=== PATIENT | male | born 1970 | race African-American/Black ===

== ENCOUNTER 2019-09-26 09:59 | Emergency (ER) | payer BC ==
[2019-09-26 10:22] VITALS: BP 153/88; PULSE 58; TEMP 98.2; BMI 29.4
[2019-09-26] MEDS ORDERED: METHOCARBAMOL 500 MG TABLET PO ONE (11:49)
[2019-09-26] MEDS ORDERED: KETOROLAC TROMETHAMINE 60 MG/2 ML VIAL IM ONE (11:49)
[2019-09-26] MEDS ORDERED: KETOROLAC TROMETHAMINE 60 MG/2 ML VIAL ONE (11:53)
[2019-09-26] MEDS ORDERED: METHOCARBAMOL 500 MG TABLET ONE (11:53)
--- NOTE | 2019-09-26 11:57 | PDOC ---
History of Present Illness - General Chief Complaint: Pain, Acute Stated Complaint: LT. SHOUDLER PAIN Time Seen by Provider: 09/26/19 11:23 History Source: Patient Exam Limitations: Clinical Condition - History of Present Illness Initial Comments: 09/26/19 11:53 Patient with no significant past medical history present with complaint of persistent left shoulder pain which is worse with movement status post heavy lifting a week ago while moving from his house and also fall during basketball game a week ago. Patient report taking Motrin for shoulder pain his back pain has been persistent localized to top of left shoulder and posterior left shoulder. Patient reported increased pain when lifting left upper arm. Denies numbness or tingling sensation. Denies previous shoulder injury of surgery. Patient report taking Motrin yesterday for symptoms Occurred: reports: last week Past History - Past Medical History Allergies/Adverse Reactions: Allergies Allergy/AdvReac Type Severity Reaction Status Date / Time No Known Allergies Allergy Verified 09/26/19 10:22 Home Medications: Ambulatory Orders Ketorolac Tromethamine [Toradol] 10 mg PO Q8H PRN #21 tablet 09/26/19 Methocarbamol [Robaxin -] 500 mg PO BID #14 tablet 09/26/19 COPD: No GI Disorders: No Liver Disease: No - Surgical History Cardiac Surgery: No - Immunization History Immunization Up to Date: No - Psycho Social/Smoking Cessation Hx Smoking History: Never smoked Have you smoked in the past 12 months: No Information on smoking cessation initiated: No Hx Alcohol Use: Yes Drug/Substance Use Hx: No Review of Systems - Review of Systems Able to Perform ROS?: Yes Is the patient limited [place] proficient: No Constitutional: No: Chills, Fever, Malaise HEENTM: No: Symptoms Reported Respiratory: No: Symptoms reported Cardiac (ROS): No: Symptoms Reported Musculoskeletal: Yes: Symptoms Reported, See HPI, Joint Pain (left shoulder pain ), Muscle Pain (left posterior shoulder pain) Integumentary: No: Symptoms Reported Neurological: No: Symptoms reported, Numbness, Paresthesia, Tingling All Other Systems: Reviewed and Negative *Physical Exam - Vital Signs Last Vital Signs Temp Pulse Resp BP Pulse Ox 98.2 F 58 L 18 153/88 98 09/26/19 10:19 09/26/19 10:19 09/26/19 10:19 09/26/19 10:19 09/26/19 10:19 - Physical Exam 09/26/19 11:57 GENERAL: Well developed, well nourished. Awake and alert in mild acute distress. PULMONARY: No evidence of respiratory distress. MUSCULOSKELETAL : Moderate point tenderness to posterior aspect of left shoulder over scapular and over AC joint of left shoulder. 5 out of 5 muscle strength left shoulder. No visible deformity to left shoulder SKIN: Warm and dry. Normal capillary refill. No ecchymosis or bruising to left shoulder. NEUROLOGICAL: Alert, awake, appropriate. No motor deficits in the lower extremities. Gait is normal without ataxia. PSYCHIATRIC: Cooperative. Good eye contact. Appropriate mood and affect. General Appearance: Yes: Nourished, Appropriately Dressed, Apparent Distress, Mild Distress ED Treatment Course - RADIOLOGY Radiology Studies Ordered: Category Date Time Status SHOULDER-W/TRANS-LEFT [RAD] Stat Radiology 09/26/19 11:23 Ordered Medical Decision Making - Medical Decision Making 09/26/19 11:54 Patient with no significant past medical history present with complaint of persistent left shoulder pain which is worse with movement status post heavy lifting a week ago while moving from his house and also fall during basketball game a week ago. Patient report taking Motrin for shoulder pain his back pain has been persistent localized to top of left shoulder and posterior left shoulder. Patient reported increased pain when lifting left upper arm. Denies numbness or tingling sensation. Denies previous shoulder injury of surgery. Patient report taking Motrin yesterday for symptoms Exam significant for moderate point tenderness to posterior aspect of left shoulder over scapular and over left AC joint of left shoulder. 5/5 muscle strength left upper arm and shoulder. X-ray of left shoulder done shows no acute abnormality. Patient symptoms likely shoulder strain. Toradol 60 mg IM ordered for pain Robaxin thousand milligrams p.o. ordered for spasm. Patient stable for discharge on p.o. Toradol as needed for pain and Robaxin for spasm with orthopedics follow-up Discharge - Discharge Information Problems reviewed: Yes Clinical Impression/Diagnosis: Sprain of left shoulder Qualifiers: Encounter type: initial encounter Shoulder sprain type: unspecified sprain Qualified Code(s): S43.402A - Unspecified sprain of left shoulder joint, initial encounter Condition: Stable Disposition: HOME - Admission No - Additional Discharge Information Prescriptions: Ketorolac Tromethamine [Toradol] 10 mg PO Q8H PRN #21 tablet PRN Reason: shoulder pain Methocarbamol [Robaxin -] 500 mg PO BID #14 tablet - Follow up/Referral Referrals: Ronen Wallis DO [Staff Physician] - - Patient Discharge Instructions Patient Printed Discharge Instructions: DI for Shoulder Sprain Additional Instructions: X-ray of left shoulder shows no acute fracture or dislocation. Your symptoms likely shoulder strain. Take prescribed medication as needed for pain. Apply heat to left shoulder 2-3 times a day as needed for pain. Follow-up referred to orthopedics if no improvement in 3 days - Post Discharge Activity
== END 2019-09-26 12:01 | disposition home or self-care (01) ==
LOC: JERFT 09:59
PROC: 3E0233Z Introduction of Anti-inflammatory into Muscle, Percutaneous Approach (ICD-10-PCS; principal; 2019-09-26)
DX: S43.402A Unspecified sprain of left shoulder joint, initial encounter (principal); X58.XXXA Exposure to other specified factors, initial encounter; Y93.89 Activity, other specified; Y92.89 Other specified places as the place of occurrence of the external cause
CPT/HCPCS: 73030-TC-LT-FY; 99282-25